=== PATIENT | male | born 1930 | race Caucasian/White ===

== ENCOUNTER 2017-01-05 20:20 | Observation (INO) | payer OTHER ==
[2017-01-05] MEDS ORDERED: NS 1,000 ML IV ONE (20:37)
[2017-01-05] MEDS ORDERED: HYDROmorphONE/DILAUDID 1 MG/ML SYR IVP ONE (20:37)
[2017-01-05] MEDS ORDERED: ONDANSETRON 4 MG/2 ML VIAL IVP ONE (20:37)
--- NOTE | 2017-01-05 20:37 | EDPHY ---
H & P Stated Complaint: ABD PAIN HX OF ILEUS, OFF AND ON FOR PAST FEW MONTHS HPI/ROS: HPI CHIEF COMPLAINT: Abdominal pain, abdominal distention HISTORY OF PRESENT ILLNESS: This patient very pleasant 86-year-old male significant past medical history for CABG, AICD left chest,, hypertension, hyperlipidemia, only takes aspirin daily, presents emergency room with abdominal pain abdominal suspension started around 130 afternoon. Patient tells me a normal lunch around 130 shortly after developed diffuse abdominal pain. Nausea. No vomiting. Took MiraLax. No bowel movement. Did have a bowel movement earlier in the day. No fever. The pain is located is lower abdomen. Of note he does have umbilical hernia that is hard non reducible. No vomiting. Past Medical History: hypertension, hyperlipidemia, coronary artery disease Past Surgical History: CABG, AICD Social History: Denies daily use of drugs alcohol tobacco products Family History: Noncontributory ROS REVIEW OF SYSTEMS: A comprehensive 10 point review of systems is otherwise negative aside from elements mentioned in the history of present illness. Exam Constitutional triage nursing summary reviewed, vital signs reviewed, awake/ alert. Eyes normal conjunctivae and sclera, EOMI, PERRLA. HENT normal inspection, atraumatic, moist mucus membranes, no epistaxis, neck supple/ no meningismus, no raccoon eyes. Respiratory clear to auscultation bilaterally, normal breath sounds, no respiratory distress, no wheezing. Cardiovascular rate normal, regular rhythm, no murmur, no edema, distal pulses normal. Gastrointestinal tender palpation lower abdomen, umbilical hernia present, tender, hard, not reducible , silent bowel sounds Genitourinary no CVA tenderness. Musculoskeletal no midline vertebral tenderness, full range of motion, no calf swelling, no tenderness of extremities, no meningismus, good pulses, neurovascularly intact. Skin pink, warm, & dry, no rash, skin atraumatic. Neurologic awake, alert and oriented x 3, AAOx3, moves all 4 extremities equally, motor intact, sensory intact, CN II-XII intact, normal cerebellar, normal vision, normal speech. Psychiatric normal mood/affect. Heme/Lymph/Immune no lymphadenopathy. Differential diagnosis includes but is not limited to and in no particular order : Incarcerated hernia, strangulated hernia, ileus, SBO, appendicitis, gallbladder disease, diverticulitis, colitis, enteritis, perforated viscus, gastritis, GERD, esophagitis, urinary tract infection, pyelonephritis, kidney stones Medical Decision Making: Plan for patient IV establishment, blood work, IV hydration, pain control with narcotics IV Dilaudid, IV Zofran for nausea, KUB x- ray. Re-evaluation: ED KUB x-ray: reviewed by myself. No free air. No air-fluid levels. Constipation present. Image interpreted myself. 2135: Patient be consult surgery as have concern of ache incarcerated hernia umbilical 2138: Spoke with Dr. Rain who will come and see and evaluate the patient at this time. 2201: Dr. Rain seen evaluated the patient plans to take the patient to the operating room to operate on his umbilical ventral hernia. Incarcerated hernia versus fat containing hernia. He awaits giving him pain it is not reducible his heart. No indication for CT at this time. Source: Patient - Personal History Current Tetanus/Diphtheria Vaccine: Yes Current Tetanus Diphtheria and Acellular Pertussis (TDAP): Yes - Medical/Surgical History Hx Asthma: No Hx Chronic Respiratory Disease: No Hx Diabetes: No Hx Cardiac Disease: Yes Hx Renal Disease: No Hx Cirrhosis: No Hx Alcoholism: No Hx HIV/AIDS: No Hx Splenectomy or Spleen Trauma: No Other PMH: ILEUS, DEFIBULATOR, 4 WAY BIPASS, KNEE REPLACEMENT, HTN, CARDIAC, HERNIA. - Social History Smoking Status: Former smoker Constitutional: Initial Vital Signs Temperature (C) 36.5 C 01/05/17 20:21 Heart Rate 86 01/05/17 20:21 Respiratory Rate 16 01/05/17 20:21 Blood Pressure 168/91 H 01/05/17 20:21 O2 Sat (%) 93 01/05/17 20:21 O2 Delivery Mode Room Air O2 (L/minute) 2 Allergies/Adverse Reactions: hyaluronic acid Allergy (Verified 01/05/17 21:46) Unknown Home Medications: Medication Instructions Recorded Allopurinol [Allopurinol 300 MG 300 mg PO DAILY 06/13/13 (RX)] Acetaminophen [Tylenol 325mg (*)] 325 mg PO Q6 PRN 01/05/17 Allopurinol [Allopurinol 300 MG 300 mg PO DAILY 01/05/17 (RX)] Amlodipine Besylate [Norvasc] 5 mg PO DAILY 01/05/17 Aspirin [Aspirin 81mg (*)] 81 mg PO DAILY 01/05/17 Atorvastatin Calcium [Lipitor 10 10 mg PO DAILY 01/05/17 mg (*)] Dutasteride [Avodart 0.5 MG (*)] 0.5 mg PO DAILY 01/05/17 Herbals/Supplements -Info Only 1 ea PO DAILY 01/05/17 LISINOPRIL/HYDROCHLOROTHIAZIDE 1 each PO DAILY 01/05/17 [PRINZIDE 20-25 MG TABLET] Metoprolol Succinate Xr [Toprol Xl 50 mg PO DAILY 01/05/17 50 mg (*)] Multivitamins [Multivitamin (*)] 1 each PO DAILY 01/05/17 Nortriptyline HCl [Pamelor 10 mg 10 mg PO HS 01/05/17 (*)] [place]-3 Ethyl Est-Lovaza [Lovaza 1 1 gm PO DAILY 01/05/17 gm (*)] Medical Decision Making - Diagnostics Imaging: Imaging Impressions Abdomen X-Ray 01/05/17 20:37 Impression: 1. Moderate stool in the colon. 2. Overall paucity of bowel gas in the small bowel. Specifics of small bowel, therefore, cannot be evaluated. There are no obvious concerning signs. - Data Points Laboratory Results: Laboratory Results 01/05/17 21:20 01/05/17 21:20 01/05/17 01/05/17 01/05/17 21:20 21:20 21:20 WBC 12.69 10^3/uL H 10^3/uL (3.80-9.50) RBC 5.39 10^6/uL 10^6/uL (4.40-6.38) Hgb 14.2 g/dL g/dL (13.7-17.5) Hct 44.5 % % (40.0-51.0) MCV 82.6 fL fL (81.5-99.8) MCH 26.3 pg L pg (27.9-34.1) MCHC 31.9 g/dL L g/dL (32.4-36.7) RDW 19.1 % H % (11.5-15.2) Plt Count 262 10^3/uL 10^3/uL (150-400) MPV 9.7 fL fL (8.7-11.7) Neut % (Auto) 83.8 % H % (39.3-74.2) Lymph % (Auto) 7.7 % L % (15.0-45.0) [place] % (Auto) 6.6 % % (4.5-13.0) Eos % (Auto) 0.6 % % (0.6-7.6) Baso % (Auto) 0.6 % % (0.3-1.7) Nucleat RBC Rel Count 0.0 % % (0.0-0.2) Absolute Neuts (auto) 10.63 10^3/uL H 10^3/uL (1.70-6.50) Absolute Lymphs (auto) 0.98 10^3/uL L 10^3/uL (1.00-3.00) Absolute Monos (auto) 0.84 10^3/uL H 10^3/uL (0.30-0.80) Absolute Eos (auto) 0.08 10^3/uL 10^3/uL (0.03-0.40) Absolute Basos (auto) 0.07 10^3/uL 10^3/uL (0.02-0.10) Absolute Nucleated RBC 0.00 10^3/uL 10^3/uL (0-0.01) Immature Gran % 0.7 % % (0.0-1.1) Immature Gran # 0.09 10^3/uL 10^3/uL (0.00-0.10) PT 12.4 SEC SEC (12.0-15.0) INR 0.93 (0.83-1.16) APTT 26.5 SEC SEC (23.0-38.0) VBG Lactic Acid Sodium 138 mEq/L mEq/L (134-144) Potassium 3.5 mEq/L mEq/L (3.5-5.2) Chloride 96 mEq/L L mEq/L (97-110) Carbon Dioxide 29 mEq/l mEq/l (22-31) Anion Gap 13 mEq/L mEq/L (8-16) BUN 23 mg/dL mg/dL (7-23) Creatinine 0.9 mg/dL mg/dL (0.7-1.3) Estimated GFR > 60 Glucose 137 mg/dL H mg/dL (70-100) Calcium 10.6 mg/dL H mg/dL (8.5-10.4) Total Bilirubin 0.9 mg/dL mg/dL (0.1-1.4) Conjugated Bilirubin 0.5 mg/dL mg/dL (0.0-0.5) Unconjugated Bilirubin 0.4 mg/dL mg/dL (0.0-1.1) AST 30 IU/L IU/L (17-59) ALT 36 IU/L IU/L (21-72) Alkaline Phosphatase 82 IU/L IU/L (38-126) Total Protein 7.2 g/dL g/dL (6.3-8.2) Albumin 4.5 g/dL g/dL (3.5-5.0) Lipase 104.0 IU/L IU/L (23-300) 01/05/17 21:20 WBC RBC Hgb Hct MCV MCH MCHC RDW Plt Count MPV Neut % (Auto) Lymph % (Auto) [place] % (Auto) Eos % (Auto) Baso % (Auto) Nucleat RBC Rel Count Absolute Neuts (auto) Absolute Lymphs (auto) Absolute Monos (auto) Absolute Eos (auto) Absolute Basos (auto) Absolute Nucleated RBC Immature Gran % Immature Gran # PT INR APTT VBG Lactic Acid 1.9 mmol/L mmol/L (0.7-2.1) Sodium Potassium Chloride Carbon Dioxide Anion Gap BUN Creatinine Estimated GFR Glucose Calcium Total Bilirubin Conjugated Bilirubin Unconjugated Bilirubin AST ALT Alkaline Phosphatase Total Protein Albumin Lipase Medications Given: Discontinued Medications Hydromorphone HCl (Dilaudid) 0.5 mg IVP EDNOW ONE Stop: 01/05/17 20:38 Last Admin: 01/05/17 21:40 Dose: 0.5 mg Sodium Chloride (Ns) 1,000 mls @ 0 mls/hr IV ONCE ONE PRN Reason: Wide Open Stop: 01/05/17 20:38 Last Admin: 01/05/17 21:40 Dose: 1,000 mls Ondansetron HCl (Zofran) 4 mg IVP EDNOW ONE Stop: 01/05/17 20:38 Last Admin: 01/05/17 21:40 Dose: 4 mg Departure - Departure Disposition: [facility] Inpatient Acute Clinical Impression: Incarcerated hernia Condition: Fair
[2017-01-05 21:37] LABS: % IMMATURE GRANULYOCYTES 0.7 % (0.0-1.1); ABSOLUTE IMMATURE GRANULOCYTES 0.09 10^3/uL (0.00-0.10); ADD DIFF? NO; ADD MORPH? NO; ADD SCAN? NO; ATYPICAL LYMPHOCYTE FLAG 10 (0-99); FRAGMENT RBC FLAG 0 (0-99); HEMATOCRIT 44.5 % (40.0-51.0); HEMOGLOBIN 14.2 g/dL (13.7-17.5); LEFT SHIFT FLG 0 (0-99); LIPEMIA HEMOLYSIS FLAG 80 (0-99); MEAN CELL HEMOGLOBIN 26.3 pg (27.9-34.1); MEAN CELL HEMOGLOBIN CONCENTR. 31.9 g/dL (32.4-36.7); MEAN CELL VOLUME 82.6 fL (81.5-99.8); MEAN PLATELET VOLUME 9.7 fL (8.7-11.7); PLATELET CLUMPS FLAG 0 (0-99); PLATELET COUNT 262 10^3/uL (150-400); RED BLOOD CELL COUNT 5.39 10^6/uL (4.40-6.38); RED CELL DISTRIBUTION WIDTH 19.1 % (11.5-15.2)
[2017-01-05 21:45] LABS: INR 0.93 (0.83-1.16); PROTIME(PATIENT) 12.4 SEC (12.0-15.0)
[2017-01-05 21:46] LABS: APTT 26.5 SEC (23.0-38.0)
[2017-01-05 21:51] LABS: ALANINE AMINOTRANSFERASE 36 IU/L (21-72); ALBUMIN 4.5 g/dL (3.5-5.0); ALKALINE PHOSPHATASE 82 IU/L (38-126); ANION GAP 13 mEq/L (8-16); ASPARTATE AMINOTRANSFERASE 30 IU/L (17-59); BILIRUBIN,TOTAL 0.9 mg/dL (0.1-1.4); BILIRUBIN-CONJUGATED 0.5 mg/dL (0.0-0.5); BILIRUBIN-UNCONJUGATED 0.4 mg/dL (0.0-1.1); CALCIUM 10.6 mg/dL (8.5-10.4); CARBON DIOXIDE 29 mEq/l (22-31); CHLORIDE 96 mEq/L (97-110); CREATININE 0.9 mg/dL (0.7-1.3); GLOMERULAR FILTRATION RATE > 60; GLUCOSE 137 mg/dL (70-100); POTASSIUM 3.5 mEq/L (3.5-5.2); SODIUM 138 mEq/L (134-144); TOTAL PROTEIN 7.2 g/dL (6.3-8.2)
[2017-01-05] MEDS ORDERED: BUPIVACAINE 0.5% 30 ML SDV ONE (22:15)
--- NOTE | 2017-01-05 22:26 | GHP ---
[f rep st] PREOP HISTORY AND PHYSICAL DATE OF ADMISSION: 01/05/2017 HISTORY OF PRESENT ILLNESS: An 86-year-old male, presents with 8-10 hours of abdominal pain. He saha s an incarcerated umbilical hernia. He says his hernia has been present for several years, but ion whaley goes in and out. He had a CT scan 2 months ago, which showed omentum in the hernia. Presently, it is somewhat tender. He has had vomiting and nausea and abdominal pain. He gets intermittent cr ampy abdominal pain similar to this at other times when his hernia is out. Admitted at this time fo r urgent repair of incarcerated umbilical hernia. Risks and options have been fully discussed and albino trejo wishes to proceed. In addition, he has gallstones, which will not be addressed at this time. His liver function tests are normal. PAST SURGICAL HISTORY: Includes total knee replacement, pacemaker, multiple coronary angioplasties, coronary bypass, and AICD placement. PAST MEDICAL HISTORY: Includes hypertension, hyperlipidemia, coronary artery disease. Denies any l fátima problems. He is an ex-smoker, but quit 40 years ago. FAMILY HISTORY: Noncontributory. REVIEW OF SYSTEMS: Reveals no other major medical problems other than those related to H and P abov e. PHYSICAL EXAMINATION: GENERAL: Reveals an alert, cooperative, 86-year-old male, in no acute distre ss. HEAD and NECK: No icterus. No adenopathy. No bruits. CHEST: Clear and symmetric. He has a pacemaker/AICD in the left upper chest. CARDIAC: Regular rhythm. ABDOMEN: Soft, slightly disten ded. Not tender except around his umbilicus, which is mildly erythematous and nonreducible and some what tender. There are no inguinal hernias. GENITALIA: Normal. EXTREMITIES: Benign. Full pulse s. IMPRESSION: Incarcerated umbilical hernia. This is probably the etiology of his abdominal pain. R isks and options have been fully discussed, including failure to relieve his pain, alternate diagnos es, possible need for bowel resection, and other problems, and he requests that we proceed. /[id number]/MODL
[2017-01-05] MEDS ORDERED: CEFAZOLIN 2 GM/DEXTROSE/100 ML BAG IV ONE (22:43)
[2017-01-05] MEDS ORDERED: ONDANSETRON 4 MG/2 ML VIAL ONE (22:51)
[2017-01-05] MEDS ORDERED: SUGAMMADEX SODIUM 200 MG/2 ML VIAL IVP ONE (22:51)
[2017-01-05] MEDS ORDERED: PROPOFOL 200 MG/20 ML VIAL ONE (22:51)
[2017-01-05] MEDS ORDERED: LIDOCAINE 2% 100 MG/5 ML SYR ONE (22:51)
[2017-01-05] MEDS ORDERED: DEXAMETHASONE 4 MG/ML VIAL ONE (22:51)
[2017-01-05] MEDS ORDERED: fentaNYL 250 MCG/5 ML INJ ONE (22:51)
[2017-01-05] MEDS ORDERED: ROCURONIUM 50 MG/5 ML VIAL ONE (22:51)
[2017-01-05] MEDS ORDERED: ceFAZolin 2 GM/DEXTROSE 100 ML IV ONE (23:00)
[2017-01-05] MEDS ORDERED: MIDAZOLAM 2 MG/2 ML VIAL ONE (23:07)
[2017-01-06] MEDS ORDERED: THROMBIN (BOVINE) 5,000 UNIT VIAL TP ONE (00:09)
--- NOTE | 2017-01-06 00:35 | SOAPPROG ---
SOAP Progress Note Assessment/Plan: Assessment: 86 MALE WITH INCARCERATED UMBILICAL HERNIA AND ABD PAIN WITH EMESIS ADMIT FOR SURGERY/ RISKS AND OPTIONS FULLY DISCUSSED Plan:REPAIR INCARCERATED UMBILICAL HERNIA 01/06/17 00:33 Objective: Vital Signs Temp Pulse Resp BP Pulse Ox 36.4 C 78 18 146/84 H 94 01/05/17 22:21 01/05/17 22:21 01/05/17 22:21 01/05/17 22:21 01/05/17 22:21 01/04/17 01/05/17 01/06/17 05:59 05:59 05:59 Intake Total 1000 Balance 1000 PT 12.4 SEC (12.0-15.0) 01/05/17 21:20 INR 0.93 (0.83-1.16) 01/05/17 21:20 ICD10 Worksheet Patient Problems: Problems Problem Status Onset Incarcerated hernia Acute
[2017-01-06] MEDS ORDERED: OXYCODONE/APAP 5/325 TAB PO PRN (00:37)
[2017-01-06] MEDS ORDERED: ONDANSETRON 4 MG/2 ML VIAL IVP PRN (00:37)
[2017-01-06] MEDS ORDERED: HYDROmorphONE/DILAUDID 1 MG/ML SYR IVP PRN (00:37)
--- NOTE | 2017-01-06 00:43 | POSTOPPROG ---
Post Op Note Date of Operation: 01/06/17 Surgeon: Prosper Rain Anesthesiologist: CHARLY Anesthesia: GET(General Endotracheal) Pre-op Diagnosis: INCARCERATED UMBILICAL HERNIA Post-op Diagnosis: SAME Indication: PAIN, OBSTRUCTION Procedure: OPEN REPAIR INCARCERATED UMBILICAL HERNIA Findings: ENTRAPPED SMALL BOWELL SEGMENT REMAINED VIABLE AFTER RELEASE Inf/Abcess present in the surg proc area at time of surgery?: Yes Depth: Organ Space EBL: Minimal Complications: 0
[2017-01-06] MEDS ORDERED: D5W 1/2 NS W/ 20 KCl/L 1,000 ML IV SCH (00:45)
--- NOTE | 2017-01-06 03:32 | GOP ---
[f rep st] OPERATIVE REPORT DATE OF OPERATION: 01/06/2017 SURGEON: Prosper Rain MD BUSINESS OBJECTS: There was no pastoral assistant. ANESTHESIOLOGIST: Dr. Grewal. PREOPERATIVE DIAGNOSIS: Incarcerated umbilical hernia. POSTOPERATIVE DIAGNOSIS: Incarcerated umbilical hernia. PROCEDURE PERFORMED: Open repair of incarcerated umbilical hernia. FINDINGS: Patient was found to have a loop of small bowel tightly incarcerated in his umbilical her kofi defect which was approximately 3 cm in size. The bowel had pinked up quite readily after being released. DESCRIPTION OF PROCEDURE: Patient was taken to the operating room where he received satisfactory ge neral endotracheal anesthesia by Dr. Grewal, placed in a supine position, prepped and draped in th e usual sterile fashion. An elliptical skin incision was made and dissection was carried down to th e hernia sac. The sac was dissected free from surrounding subcutaneous tissue. It was opened at th e fascial level and the sac was excised. This exposed a darkened piece of small bowel which was rel eased. The hernia opening was widened on either end for approximately 1 cm to allow release of the b owel. Normal small bowel was brought up into the wound and the entrapped bowel returned to a more n ormal pinkish color with peristalsis and positive pulsations in the mesentery. Hemostasis was assur ed. The small bowel was reduced. The hernia defect was exposed. Its edges were freshened up and i t was closed in a [id number] 2-layer closure with interrupted 0 Ethibond mattress sutures. The wound was infiltrated with 0.5% Marcaine. Topical thrombin was placed in the surgical cavity. Sub cu was closed with running 3-0 Vicryl suture, the skin with a 4-0 Monocryl subcuticular stitch. All layers were infiltrated with 0.5% Marcaine. Blood loss was negligible. No complications. Taken t o the recovery room in good condition. /[id number]/MODL
[2017-01-06] MEDS: METOCLOPRAMIDE 10 MG/2 ML VIAL IVP SCH ×4 (05:59→23:43)
[2017-01-06] MEDS ORDERED: amLODIPine BESYLATE 5 MG TAB PO SCH ×2 (09:00→21:00)
[2017-01-06] MEDS ORDERED: ASPIRIN 81 MG CHEWABLE TAB PO SCH ×2 (09:00→21:00)
[2017-01-06] MEDS ORDERED: MULTIVITAMINS 1 EACH TAB PO SCH ×2 (09:00→21:00)
[2017-01-06] MEDS ORDERED: METOPROLOL SUCCINATE XR 50 MG TAB PO SCH ×2 (09:00→21:00)
[2017-01-06] MEDS ORDERED: ALLOPURINOL 300 MG TAB PO SCH ×2 (09:00→21:00)
[2017-01-06] MEDS ORDERED: ATORVASTATIN CALCIUM 10 MG TAB PO SCH ×2 (09:00→21:00)
[2017-01-06] MEDS ORDERED: OMEGA-3 ETHYL EST-LOVAZA 1 GM CAP PO SCH ×2 (09:00→21:00)
[2017-01-06] MEDS ORDERED: LISINOPRIL/HCTZ 20/12.5MG 1 EA TAB PO SCH ×2 (09:00→21:00)
[2017-01-06] MEDS ORDERED: HYDROCHLOROTHIAZIDE 12.5 MG CAP PO SCH ×2 (09:00→21:00)
[2017-01-06] MEDS ORDERED: DUTASTERIDE 0.5 MG CAP PO SCH ×2 (09:00→21:00)
--- NOTE | 2017-01-06 09:55 | SOAPPROG ---
RENALD[facility] Progress Note Assessment/Plan: Assessment: 86 yo MALE WITH INCARCERATED UMBILICAL HERNIA AND ABD PAIN WITH EMESIS ADMIT FOR SURGERY/ RISKS AND OPTIONS FULLY DISCUSSED Plan:REPAIR INCARCERATED UMBILICAL HERNIA 01/06/17 00:33 01/06/17 09:55 Objective: Vital Signs Temp Pulse Resp BP Pulse Ox 36.8 C 80 17 106/62 93 01/06/17 07:31 01/06/17 07:31 01/06/17 07:31 01/06/17 07:31 01/06/17 07:31 01/05/17 01/06/17 01/07/17 05:59 05:59 05:59 Intake Total 2350 Output Total 420 225 Balance 1930 -225 PT 12.4 SEC (12.0-15.0) 01/05/17 21:20 INR 0.93 (0.83-1.16) 01/05/17 21:20 ICD10 Worksheet Patient Problems: Problems Problem Status Onset Incarcerated hernia Acute
--- NOTE | 2017-01-06 09:57 | SOAPPROG ---
SOAP Progress Note Assessment/Plan: Assessment: 86 yo male s/p open repair of incarcerated umbilical hernia POD #1 Pain well controlled. Tolerating clears. Gen: comfortable, afebrile Abd: incision cdi, soft Plan: Anticipate discharge today or tomorrow. 01/06/17 09:55 Objective: Vital Signs Temp Pulse Resp BP Pulse Ox 36.8 C 80 17 106/62 93 01/06/17 07:31 01/06/17 07:31 01/06/17 07:31 01/06/17 07:31 01/06/17 07:31 01/05/17 01/06/17 01/07/17 05:59 05:59 05:59 Intake Total 2350 Output Total 420 225 Balance 1930 -225 PT 12.4 SEC (12.0-15.0) 01/05/17 21:20 INR 0.93 (0.83-1.16) 01/05/17 21:20 ICD10 Worksheet Patient Problems: Problems Problem Status Onset Incarcerated hernia Acute
--- NOTE | 2017-01-06 10:12 | SOAPPROG ---
SOAP Progress Note Assessment/Plan: Assessment: doing great/ wound ok/ afebrile/ tolerating po/ home later or in am Plan:as above 01/06/17 10:11 Objective: Vital Signs Temp Pulse Resp BP Pulse Ox 36.8 C 80 17 106/62 93 01/06/17 07:31 01/06/17 07:31 01/06/17 07:31 01/06/17 07:31 01/06/17 07:31 01/05/17 01/06/17 01/07/17 05:59 05:59 05:59 Intake Total 2350 Output Total 420 225 Balance 1930 -225 PT 12.4 SEC (12.0-15.0) 01/05/17 21:20 INR 0.93 (0.83-1.16) 01/05/17 21:20 ICD10 Worksheet Patient Problems: Problems Problem Status Onset Incarcerated hernia Acute
[2017-01-06] MEDS: ERTAPENEM 1 GM in NS 100 ML IV SCH (10:31)
[2017-01-06 18:07] LABS: COLOR PALE YELLOW; LEUKOCYTE ESTERASE,URINE NEGATIVE (NEGATIVE); NITRITE,URINE NEGATIVE (NEGATIVE)
[2017-01-06] MEDS ORDERED: LISINOPRIL PO SCH (21:00)
[2017-01-06] MEDS ORDERED: HCTZ PO SCH (21:00)
[2017-01-06] MEDS ORDERED: ASPIRIN EC 81 MG TAB PO SCH (21:00)
[2017-01-06] MEDS ORDERED: [UNRECOGNIZED DRUG - REMARK] PO SCH (21:00)
[2017-01-06] MEDS ORDERED: NORTRIPTYLINE HCL 10 MG CAP PO SCH (21:00)
[2017-01-07] MEDS: METOCLOPRAMIDE 10 MG/2 ML VIAL IVP SCH (05:14)
--- NOTE | 2017-01-07 07:57 | SOAPPROG ---
SOAP Progress Note Assessment/Plan: Assessment: s/p open umbilical hernia repair for incarcerated umbilical hernia feels well dc home S: No flatus but feels great and if it is coming Sitting in chair CTAB RRR BS present S NT ND incision cdi Plan: 01/07/17 07:56 Objective: Vital Signs Temp Pulse Resp BP Pulse Ox 36.6 C 80 17 120/70 98 01/07/17 04:00 01/07/17 04:00 01/07/17 04:00 01/07/17 04:00 01/07/17 04:00 01/06/17 01/07/17 01/08/17 05:59 05:59 05:59 Intake Total 2350 250 Output Total 420 1725 350 Balance 1930 -1475 -350 PT 12.4 SEC (12.0-15.0) 01/05/17 21:20 INR 0.93 (0.83-1.16) 01/05/17 21:20 ICD10 Worksheet Patient Problems: Problems Problem Status Onset Incarcerated hernia Acute
[2017-01-07 08:12] VITALS: TEMP 98.6; O2SAT 90
[2017-01-07] MEDS: ERTAPENEM 1 GM in NS 100 ML IV SCH (08:36)
[2017-01-07 12:06] VITALS: BP 116/83; PULSE 79; RESP 20
== END 2017-01-07 14:24 | disposition home or self-care (01) ==
LOC: INTOOBSV 21:48 → F2W 01-06 01:07
PROVIDERS: ADMIT Surgery; ATTEND Surgery
PROC: 0WQF0ZZ Repair Abdominal Wall, Open Approach (ICD-10-PCS; principal; 2017-01-05 22:30)
DX: K42.0 Umbilical hernia with obstruction, without gangrene (principal); I10 Essential (primary) hypertension; E78.5 Hyperlipidemia, unspecified; Z95.1 Presence of aortocoronary bypass graft; Z95.810 Presence of automatic (implantable) cardiac defibrillator; Z79.82 Long term (current) use of aspirin
CPT/HCPCS: 49587; 74000; 88302; 96361; 96374; 96375; 99285; G0378; J0690; J1100; J1170; J1335; J2001; J2250; J2405; J2704; J2765; J3010

== ENCOUNTER → 2017-05-01 | Outpatient (CLI) | payer OTHER | LOC: CIMAGING 12:37 | PROVIDERS: ATTEND Physician Assistant Medical | DX: I25.10 Atherosclerotic heart disease of native coronary artery without angina pectoris (principal); E78.5 Hyperlipidemia, unspecified; Z95.1 Presence of aortocoronary bypass graft; Z72.0 Tobacco use | CPT/HCPCS: 93880-PO ==

== ENCOUNTER → 2018-07-16 | Outpatient (CLI) | payer OTHER | LOC: FIMAGING 08:49 | PROVIDERS: ATTEND Internal Medicine | DX: M81.0 Age-related osteoporosis without current pathological fracture (principal); E21.3 Hyperparathyroidism, unspecified; M48.062 Spinal stenosis, lumbar region with neurogenic claudication ==

== ENCOUNTER → 2018-07-17 | Outpatient (CLI) | payer OTHER ==
[~2018-07-17] MED LIST: IOPAMIDOL (ISOVUE 370) 100 ML BTL IV ONE; IOPAMIDOL (ISOVUE-300) 150 ML BTL ONE; IOPAMIDOL (ISOVUE-M 300) 15 ML VIAL ONE; LIDOCAINE 1% 300 MG/30 ML SDV ONE
[2018-07-17 09:00] LABS: INR 0.96 (0.83-1.16)
== END ==
LOC: FIMAGING 08:19
PROVIDERS: ATTEND Internal Medicine
PROC: B02BYZZ Computerized Tomography (CT Scan) of Spinal Cord using Other Contrast (ICD-10-PCS; principal; 2018-07-17)
DX: M48.061 Spinal stenosis, lumbar region without neurogenic claudication (principal); M43.16 Spondylolisthesis, lumbar region; M53.86 Other specified dorsopathies, lumbar region
CPT/HCPCS: 62304; 72132; 72265; Q9967

== ENCOUNTER 2018-09-07 10:43 | Emergency (ER) | payer OTHER ==
--- NOTE | 2018-09-07 11:04 | EDPHY ---
H & P Stated Complaint: cough congestion x ~ 2wks, SOB c exertion Time Seen by Provider: 09/07/18 11:03 HPI/ROS: 88 yo M presents c/o cough and congestion for 10 days, just isnt improving with over the counter medications, no chest pain. Some fever and chills. Review of systems As per HPI General positive fever positive chills no weakness HEENT no eye pain no eye discharge. No eye redness, no sore throat Respiratory positive URI symptoms positive cough, positive shortness of breath Cardiac no chest pain, no peripheral edema GI no abdominal pain, no diarrhea, no constipation, no nausea, no vomiting no flank pain, no hematuria, no dysuria Musculoskeletal no myalgias, no joint pain Heme no easy bruising, no easy bleeding Endo no polyuria, no polydipsia Skin no rashes, no pruritus Neuro no syncope, no dizziness, no headaches Psych is no suicidal ideation, no homicidal ideation Source: Patient, Family Exam Limitations: No limitations - Personal History Current Tetanus/Diphtheria Vaccine: No Current Tetanus Diphtheria and Acellular Pertussis (TDAP): No - Medical/Surgical History Hx Asthma: No Hx Chronic Respiratory Disease: No Hx Diabetes: No Hx Cardiac Disease: Yes Hx Renal Disease: No Hx Cirrhosis: No Hx Alcoholism: No Hx HIV/AIDS: No Hx Splenectomy or Spleen Trauma: No Other PMH: ILEUS, pacer/AICD, 4 WAY BYPASS, KNEE REPLACEMENT, HTN, CARDIAC, HERNIA. - Family History Significant Family History: No pertinent family hx - Social History Smoking Status: Former smoker Alcohol Use: None Drug Use: None - Physical Exam Exam: 88-year-old male alert and oriented no acute distress nontoxic appearance, temperature 37.6 Atraumatic normocephalic Extraocular muscles intact, anicteric Nares mild yellowish discharge Oropharynx mild erythema no tonsillar swelling no exudate no uvular deviation, tolerating own secretions Neck supple no lymphadenopathy Lungs coarse wheeze however symmetric air entry Heart regular rate and rhythm Abdomen normoactive bowel sounds soft nontender Extremities no cyanosis clubbing or edema, no calf tenderness Skin no rash Constitutional: Initial Vital Signs Temperature (C) 37.6 C 09/07/18 10:53 Heart Rate 94 09/07/18 10:53 Respiratory Rate 20 09/07/18 10:53 Blood Pressure 133/78 H 09/07/18 10:53 O2 Sat (%) 91 L 09/07/18 10:53 O2 Delivery Mode Room Air Allergies/Adverse Reactions: hyaluronic acid Allergy (Verified 01/05/17 21:46) Unknown Home Medications: Medication Instructions Recorded Allopurinol [Allopurinol 300 MG 300 mg PO DAILY 01/05/17 (RX)] Amlodipine Besylate [Norvasc] 5 mg PO DAILY 01/05/17 Atorvastatin Calcium [Lipitor 10 10 mg PO DAILY 01/05/17 mg (*)] LISINOPRIL/HYDROCHLOROTHIAZIDE 1 each PO DAILY 01/05/17 [PRINZIDE 20-25 MG TABLET] Metoprolol Succinate Xr [Toprol Xl 50 mg PO DAILY 01/05/17 50 mg (*)] Multivitamins [Multivitamin (*)] 1 each PO DAILY 01/05/17 Aspirin EC [Aspirin EC 81 mg (*)] 81 mg PO HS 01/06/17 Co Q-10 09/07/18 levOFLOXACIN [Levaquin] 500 mg PO DAILY #10 tablet 09/07/18 Medical Decision Making - Diagnostics Imaging Results: Imaging Impressions Chest X-Ray 09/07/18 11:09 Impression: Right upper lobe consolidation suggesting pneumonia. Radiographic followup is recommended to resolution. ED Course/Re-evaluation: Patient seen and evaluated for cough and congestion times 10 days Influenza swab negative Chest x-ray-small right upper lobe consolidation CBC White blood cell count 11 no bands Lactate 1.8 Patient given a DuoNeb with resolution of wheezing, Solu-Medrol 125 mg IV push Additionally he was given a 1st dose of IV antibiotics to cover community- acquired pneumonia He was given Levaquin 500 mg IV piggyback Was also given acetaminophen 650 mg for low-grade fever. Impression Community-acquired pneumonia Not requiring oxygen support Plan Discharge home Levaquin 500 mg daily times 10 days beginning tomorrow Symptomatic care Follow-up with primary care physician in 3-7 days Given education on reasons to return including difficulty breathing , high fever , chest pain or vomiting or generalized weakness. Differential Diagnosis: Differential diagnosis considered but not limited to: URI, bronchitis, sinusitis, pneumonia - Data Points Laboratory Results: Laboratory Results 09/07/18 12:00 09/07/18 09/07/18 09/07/18 12:21 12:21 12:00 WBC 11.62 10^3/uL H 10^3/uL (3.80-9.50) RBC 5.41 10^6/uL 10^6/uL (4.40-6.38) Hgb 13.9 g/dL g/dL (13.7-17.5) Hct 45.7 % % (40.0-51.0) MCV 84.5 fL fL (81.5-99.8) MCH 25.7 pg L pg (27.9-34.1) MCHC 30.4 g/dL L g/dL (32.4-36.7) RDW 19.6 % H % (11.5-15.2) Plt Count 244 10^3/uL 10^3/uL (150-400) MPV 10.0 fL fL (8.7-11.7) Neut % (Auto) 69.0 % % (39.3-74.2) Lymph % (Auto) 13.1 % L % (15.0-45.0) [place] % (Auto) 12.8 % % (4.5-13.0) Eos % (Auto) 3.7 % % (0.6-7.6) Baso % (Auto) 0.8 % % (0.3-1.7) Nucleat RBC Rel Count 0.0 % % (0.0-0.2) Absolute Neuts (auto) 8.02 10^3/uL H 10^3/uL (1.70-6.50) Absolute Lymphs (auto) 1.52 10^3/uL 10^3/uL (1.00-3.00) Absolute Monos (auto) 1.49 10^3/uL H 10^3/uL (0.30-0.80) Absolute Eos (auto) 0.43 10^3/uL H 10^3/uL (0.03-0.40) Absolute Basos (auto) 0.09 10^3/uL 10^3/uL (0.02-0.10) Absolute Nucleated RBC 0.00 10^3/uL 10^3/uL (0-0.01) Immature Gran % 0.6 % % (0.0-1.1) Immature Gran # 0.07 10^3/uL 10^3/uL (0.00-0.10) POC Sodium 141 mEq/L mEq/L (135-145) POC Potassium 3.4 mEq/L mEq/L (3.3-5.0) POC Chloride 106.0 mEq/L mEq/L (97-110) POC Total CO2 32 mEq/L H mEq/L (22-31) POC BUN 11 mg/dL mg/dL (7-23) POC Creatinine 0.9 mg/dL mg/dL (0.7-1.3) POC Glucose 126 mg/dL H mg/dL (70-100) POC Lactic Acid Marcio 1.8 mmol/L mmol/L (0.7-2.1) POC Calcium 10.5 mg/dL H mg/dL (8.5-10.4) Medications Given: Discontinued Medications Acetaminophen (Tylenol) 650 mg PO EDNOW ONE Stop: 09/07/18 11:56 Last Admin: 09/07/18 12:24 Dose: 650 mg Albuterol/Ipratropium (Duoneb) 3 ml IH EDNOW ONE Stop: 09/07/18 11:09 Last Admin: 09/07/18 11:31 Dose: 3 ml Levofloxacin/Dextrose (Levaquin 500 Mg (Premix)) 100 mls @ 100 mls/hr IV EDNOW ONE PRN Reason: Protocol Stop: 09/07/18 12:51 Last Admin: 09/07/18 12:17 Dose: 100 mls Methylprednisolone Sodium Succinate (Solu-Medrol) 125 mg IVP EDNOW ONE Stop: 09/07/18 12:05 Last Admin: 09/07/18 13:40 Dose: 125 mg Point of Care Test Results: Chemistry 09/07/18 12:21 POC Sodium 141 mEq/L mEq/L (135-145) POC Potassium 3.4 mEq/L mEq/L (3.3-5.0) POC Chloride 106.0 mEq/L mEq/L (97-110) POC Total CO2 32 mEq/L H mEq/L (22-31) POC BUN 11 mg/dL mg/dL (7-23) POC Creatinine 0.9 mg/dL mg/dL (0.7-1.3) POC Glucose 126 mg/dL H mg/dL (70-100) POC Calcium 10.5 mg/dL H mg/dL (8.5-10.4) Blood Gas/Lactic Acid-Venous 09/07/18 12:21 POC Lactic Acid Marcio 1.8 mmol/L mmol/L (0.7-2.1) Influenza PCR Flu Nasal Swab Collection Date 09/07/18 Flu Nasal Swab Collection Time 11:20 Influenza A Result Not Detected Influenza B Result Not Detected Departure - Departure Disposition: Home, Routine, Self-Care Clinical Impression: Pneumonia Condition: Good Instructions: Pneumonia (ED) Referrals: Aries Guevara MD [Primary Care Provider] - As per Instructions Prescriptions: levOFLOXACIN [Levaquin] 500 mg PO DAILY #10 tablet
[2018-09-07] MEDS ORDERED: IPRATROPIUM/ALBUTEROL 3 ML DEYVIAL IH ONE (11:08)
[2018-09-07] MEDS ORDERED: levOFLOXACIN 500 MG/DEXTROSE 100 ML IV ONE (11:52)
[2018-09-07] MEDS ORDERED: ACETAMINOPHEN 325 MG TAB PO ONE (11:55)
[2018-09-07] MEDS ORDERED: methylPREDNISolone SOD SUCC 125 MG/2 ML VIAL IVP ONE (12:04)
[2018-09-07 13:30] LABS: PLATELET COUNT 244 10^3/uL (150-400)
[2018-09-07 13:53] VITALS: BP 147/64
== END 2018-09-07 14:00 | disposition home or self-care (01) ==
LOC: CED 10:43
DX: J18.9 Pneumonia, unspecified organism (principal); Z87.891 Personal history of nicotine dependence
CPT/HCPCS: 71046; 96365; 96375; 99284; J1956; J2930; 80048-PO; 83605-PO

== ENCOUNTER → 2018-11-19 | Outpatient (CLI) | payer OTHER | LOC: BMCIMAGING 09:36 | PROVIDERS: ATTEND Internal Medicine | DX: J18.1 Lobar pneumonia, unspecified organism (principal) ==

== ENCOUNTER → 2019-01-22 | Outpatient (CLI) | payer OTHER | LOC: BMCIMAGING 11:23 | PROVIDERS: ATTEND Internal Medicine | DX: Z09 Encounter for follow-up examination after completed treatment for conditions other than malignant neoplasm (principal); Z87.01 Personal history of pneumonia (recurrent) ==

== ENCOUNTER → 2019-02-06 | Outpatient (CLI) | payer OTHER | LOC: BMCIMAGING 14:58 | PROVIDERS: ATTEND Internal Medicine | DX: R05 Cough (principal); K44.9 Diaphragmatic hernia without obstruction or gangrene; Z95.0 Presence of cardiac pacemaker ==

== ENCOUNTER 2019-02-12 05:48 | Observation (INO) | payer OTHER ==
[2019-02-12] MEDS ORDERED: ceFAZolin 2 GM/DEXTROSE 100 ML IV ONE (06:04)
[2019-02-12] MEDS ORDERED: ACETAMINOPHEN 500 MG TAB PO ONE (06:04)
[2019-02-12] MEDS ORDERED: LIDOCAINE 1% 2 ML INJ ID PRN (06:05)
[2019-02-12] MEDS ORDERED: LR 1,000 ML IV ONE (06:05)
--- NOTE | 2019-02-12 06:24 | PDHPUP ---
History & Physical Update H&P update statement: This history and physical update is based on an assessment of the patient which was completed after admission or registration (within 24 hours), but prior to the surgery/procedure. H&P update: H&P reviewed & patient examined, no change in patient's condition since H&P completed (Consents signed and site marked. All questions answered.)
[2019-02-12] MEDS ORDERED: THROMBIN (BOVINE) 20,000 UNIT VIAL TP ONE (06:54)
[2019-02-12] MEDS ORDERED: BACITRACIN 50,000 UNITS/10 ML SYR IRR ONE (06:54)
[2019-02-12] MEDS ORDERED: CHLORHEXIDINE GLUC HIBICLENS 118 ML BTL TP ONE (06:54)
[2019-02-12] MEDS ORDERED: BUPIVACAINE/EPI 0.25% 30 ML SDV ONE (06:54)
[2019-02-12] MEDS ORDERED: fentaNYL 100 MCG/2 ML INJ ONE (07:10)
--- NOTE | 2019-02-12 07:10 | PDANEPAE ---
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 Multiple angioplaties. Carotid disease. SSS s/p PPM/AICD. Pulmonary HTN. HLD - Pulmonary History Hx COPD: No Hx Asthma/Reactive Airway Disease: No Hx Recent Upper Respiratory Infection: Yes Hx Oxygen in Use at Home: No Hx Sleep Apnea: Yes Sleep Apnea Screening Result - Last Documented: Positive Pulmonary History Comment: Pulmonary HTN. PNA 10/2018 - Neurologic History Hx Cerebrovascular Accident: No Hx Seizures: No Hx Dementia: No - Endocrine History Hx Diabetes: No Hypothyroid: No Hyperthyroid: No Obesity: mild - Renal History Hx Renal Disorders: No - Liver History Hx Hepatic Disorders: No - Neurological & Psychiatric Hx Hx Neurological and Psychiatric Disorders: No - Cancer History Hx Cancer: No - Congenital Disorder History Hx Congenital Disorders: No - GI History GERD: no Hx Gastrointestinal Disorders: No - Other Health History Other Health History: R TKA. Spinal stenosis. Gout. MATILDE. BPH. Umbilical hernia s/p repair. Loose teeth; upper right side. Dental implants R upper and L upper. Ear itching, treated - Chronic Pain History Chronic Pain: No - Surgical History Prior Surgeries: Dental implants 11/2018. AICD 2017. Incarcerated umbilical hernia repair 01/05/17. CABG x4 1993. PPM ~2006. R TKA ~2004. Bilateral cartaract surgery. Multiple angioplasties prior to CABG ANE Review of Systems Review of systems is: negative Review of Systems: - Exercise capacity Exercise capacity: <4 METS METS (RN): 3 METS - Pacemaker Pacemaker Type: Permanent Pacer/Defib Pacemaker Instructional Technologist: [employer] Pacemaker Model: Itrevia Pacemaker Mode: DDD-CLS Date Pacemaker Last Checked: 10/16/2018 ANE Patient History - Allergies Allergies/Adverse Reactions: No Known Allergies Allergy (Verified 01/30/19 11:19) - Home Medications Home medications: home medication list seen and reviewed Home Medications: Allopurinol [Allopurinol 300 MG (RX)] 300 mg PO HS 01/30/19 [Last Taken Unknown] Aspirin [Aspirin 81mg (*)] 81 mg PO HS 01/30/19 [Last Taken Unknown] Atorvastatin Calcium [Lipitor 10 mg (*)] 10 mg PO HS 01/30/19 [Last Taken Unknown] Lisinopril/Hydrochlorothiazide [Zestoretic 20-25 mg Tablet] 1 each PO HS [Last Taken Unknown] Metoprolol Succinate Xr [Toprol Xl 50 mg (*)] 50 mg PO HS 01/30/19 [Last Taken Unknown] Multivitamins [Multivitamin (*)] 1 each PO HS 01/30/19 [Last Taken Unknown] Oxybutynin Chloride [Ditropan Xl] 10 mg PO HS 01/30/19 [Last Taken Unknown] RX: Herbals/Supplements -Info Only 1 ea PO DAILY 01/30/19 [Last Taken Unknown] amLODIPine BESYLATE [Norvasc 5 mg (*)] 5 mg PO HS 01/30/19 [Last Taken Unknown] - NPO status NPO Status: no food or drink >8 hours NPO Since - Liquids (Date): 02/11/19 NPO Since - Liquids (Time): 19:00 NPO Since - Solids (Date): 02/11/19 NPO Since - Solids (Time): 19:00 - Anes Hx Anes Hx: no prior problems - Smoking Hx Smoking Status: Former smoker - Family Anes Hx Family Hx Anesthesia Complications: Unknown. ANE Labs/Vital Signs - Vital Signs Vital Signs: reviewed preoperatively; see RN documention for details Blood Pressure: 132/78 Heart Rate: 67 Respiratory Rate: 16 O2 Sat (%): 90 Height: 175.26 cm Weight: 90.718 kg ANE Physical Exam - Airway Neck exam: FROM Mallampati Score: Class 2 Mouth exam: normal dental/mouth exam - Pulmonary Pulmonary: no respiratory distress, clear to auscultation - Cardiovascular Cardiovascular: regular rate and rhythym (paced) - ASA Status ASA Status: IV ANE Anesthesia Plan Anesthesia Plan: general endotracheal anesthesia Lines/Monitors: arterial line
[2019-02-12] MEDS ORDERED: PROPOFOL/EMULSION 500 MG/50 ML BOTTLE IV ONE ×2 (07:11→08:21)
[2019-02-12] MEDS ORDERED: PROPOFOL 200 MG/20 ML VIAL ONE (07:11)
[2019-02-12] MEDS ORDERED: LACTULOSE 20 GM/30 ML UDCUP PO PRN (08:48)
[2019-02-12] MEDS ORDERED: BISACODYL 10 MG SUPP PR PRN (08:48)
[2019-02-12] MEDS ORDERED: diphenhydrAMINE 25 MG CAP PO PRN (08:48)
[2019-02-12] MEDS ORDERED: MAGNESIUM HYDROXIDE 30 ML UDCUP PO PRN (08:48)
[2019-02-12] MEDS ORDERED: POLYETHYLENE GLYCOL 3350 17 GM PKT PO PRN (08:48)
[2019-02-12] MEDS ORDERED: ONDANSETRON 4 MG/2 ML VIAL IVP PRN ×2 (08:48→08:53)
[2019-02-12] MEDS ORDERED: ONDANSETRON DISINTEGRATING 4 MG TAB PO PRN (08:48)
[2019-02-12] MEDS ORDERED: METHOCARBAMOL 750 MG TAB PO PRN (08:48)
[2019-02-12] MEDS ORDERED: LR 500 ML IV PRN (08:53)
[2019-02-12] MEDS ORDERED: fentaNYL 100 MCG/2 ML INJ IVP PRN (08:53)
[2019-02-12] MEDS ORDERED: LABETALOL HCL 5 MG/ML 20 ML MDV IVP PRN (08:53)
[2019-02-12] MEDS ORDERED: ALBUTEROL 3 ML DEYVIAL IH PRN (08:53)
[2019-02-12] MEDS ORDERED: PROMETHAZINE HCL 25 MG/ML INJ IVP PRN (08:53)
[2019-02-12] MEDS ORDERED: MEPERIDINE 25 MG/0.5 ML AMP IVP PRN (08:53)
[2019-02-12] MEDS ORDERED: NALOXONE HCL 0.4 MG/ML INJ IVP PRN (08:53)
[2019-02-12] MEDS ORDERED: DEXAMETHASONE 4 MG/ML VIAL IVP PRN (08:53)
[2019-02-12] MEDS ORDERED: NS 1,000 ML IV SCH (09:00)
[2019-02-12] MEDS ORDERED: THROMBIN (BOVINE) 5,000 UNIT VIAL TP ONE (09:34)
[2019-02-12] MEDS ORDERED: ePHEDrine SULFATE 25 MG/5 ML SYR ONE ×2 (09:35)
[2019-02-12] MEDS ORDERED: LIDOCAINE 2% 5 ML SDV ONE (09:35)
[2019-02-12] MEDS ORDERED: ROCURONIUM 50 MG/5 ML VIAL ONE (09:35)
[2019-02-12] MEDS ORDERED: PHENYLEPHRINE HCL 100 MCG/ML SYR ONE ×2 (09:35→10:27)
[2019-02-12] MEDS ORDERED: ONDANSETRON 4 MG/2 ML VIAL ONE (09:36)
[2019-02-12] MEDS ORDERED: NEOSTIGMINE METHYLSULFATE 10 MG/10 ML MDV ONE (09:54)
[2019-02-12] MEDS ORDERED: GLYCOPYRROLATE 0.2 MG/1 ML VIAL ONE (09:54)
--- NOTE | 2019-02-12 10:19 | POSTOPPROG ---
Post Op Note Date of Operation: 02/12/19 Surgeon: Valdemar Hdez Television Repair Teacher: Stella Castellano NP Anesthesia: GET(General Endotracheal) Pre-op Diagnosis: Lumbar stenosis Post-op Diagnosis: Lumbar stenosis Procedure: L2-5 laminectomy Inf/Abcess present in the surg proc area at time of surgery?: No Depth: Deep Incisional (Fascial) EBL: 50-100 Total fluids administered: see anesthesia Complications: none Drains: Roger Narayanan Date of Surgery: 02/12/19 Post Op Day: 0 Assessment/Plan: Assessment: 88 yr old male s/p L2-5 laminectomy Plan: -Admit for obs -PT/OT -DEVYN to bulb suction -Pain management Call with questions/concerns Subjective: waking up in pacu Objective: waking up in pacu MAEx4 5/5 BLE Dressing CDI DEVYN patent Appropriate Neuro Check Frequency Ordered: Yes
[2019-02-12] MEDS: PHENYLEPHRINE HCL 100 MCG/ML SYR IVP PRN ×2 (10:29→10:32)
--- NOTE | 2019-02-12 11:42 | GOP ---
[f rep st] OPERATIVE REPORT DATE OF OPERATION: 02/12/2019 SURGEON: Valdemar Hdez MD MILITARY COOK: Stella Castellano NP. ANESTHESIA: General. PREOPERATIVE DIAGNOSIS: 1. L2 through L5 lumbar spondylosis with severe spinal stenosis. 2. Low back pain with lower extremity claudication and radiculopathy. 3. Treatment refractory to nonoperative intervention. POSTOPERATIVE DIAGNOSIS: 1. L2 through L5 lumbar spondylosis with severe spinal stenosis. 2. Low back pain with lower extremity claudication and radiculopathy. 3. Treatment refractory to nonoperative intervention. PROCEDURE PERFORMED: 1. Decompressive laminectomy L2-L3, L3-L4, and L4-L5 with medial facetectomies and lateral recess decompression. 2. Use of intraoperative fluoroscopy, less 1 hour physician time. 3. Use of neuromonitoring. 4. Use of the operating microscope. FINDINGS: per imaging SPECIMENS: None. ESTIMATED BLOOD LOSS: 100 mL. INDICATIONS: The patient is a very pleasant 88-year-old gentleman who presented to my office with lower extremity claudication and radiculopathy. He had evidence of spondylosis throughout with severe spinal stenosis L2-L3, L3-L4 , and L4-L5. After discussion of the risks, benefits, and treatment alternatives, and after failing nonoperative intervention, we decided to proceed forth with surgery as described above. DESCRIPTION OF PROCEDURE: Patient was brought to the operating theater and underwent general endotracheal anesthesia without complications. He had Venodynes, MITCHELL hose, and the appropriate lines placed by Anesthesia. He was flipped prone onto the Can frame and all bony prominences inspected and padded. The lower lumbar region was prepped and draped in usual sterile surgical fashion. A time-out was completed per protocol, and the patient received antibiotics within 1 hour of incision. Using lateral fluoroscopy and the spinal needle, we picked our entry point to the L2 through L5 levels. This was marked in the midline. Incision was infiltrated with Marcaine with epinephrine. The incision was taken down initially with the scalpel blade. Using monopolar, the incision was taken down to the midline through the lumbodorsal fascia and a subperiosteal dissection carried to the medial facet joints of L2-L3, L3-L4, and L4-L5. Deep retractors were placed to maintain our exposure and we confirmed our level using lateral fluoroscopy. Next, using a combination of bur tip on the drill bit, Kerrison punches, and Leksell rongeur, as well as microscopic magnification, we completed a decompressive laminectomy with bilateral medial facetectomies and lateral recess decompression L2-L3, L3-L4, and L4-L5. We completed this until we felt that everything was well decompressed on manual palpation with the ball-tipped probe. We obtained hemostasis with the bipolar. The wound was irrigated copiously with bacitracin irrigation. A drain was left in the subfascial space. We closed the wound in multiple layers using Vicryl sutures for the deep layers and Dermabond for the skin. The patient's wounds were dressed sterilely. He was then flipped supine onto the transport cart where he was awakened, extubated, and taken to the recovery room in stable condition. There were no complications and no noted changes on neuromonitoring throughout the procedure. COMPLICATIONS: None. /[id number]/MODL MTDD
[2019-02-12 11:53] LABS: PLATELET COUNT 185 10^3/uL (150-400)
--- NOTE | 2019-02-12 12:37 | POSTANESTH ---
Post Anesthetic Evaluation Cardiovascular Status: Tx Hyper/Hypo-tension (Pt hypotensive in PACU. Treated with intermittent doses of phenylephrine and ephedrine. Fluid bolus also given. Improvement noted.) Respiratory Status: Normal, Stable Level of Consciousness/Mental Status: Can Participate in Eval, Mildly Sleepy, Arousable Pain Control: Adequate, Prn Tx Ordered Nausea/Vomiting Control: Adequate, Prn Tx Ordered Complications Possibly Related to Anesthesia: Other, See Comments (Pt going to be sent to SDU or ICU, given advanced age, h/o heart problems, and ongoing hypotension in PACU which has been slow to resolve.)
[2019-02-12] MEDS ORDERED: PROTOCOL POTASSIUM 1 DOSE MISC PRN (13:32)
--- NOTE | 2019-02-12 13:42 | GCON ---
[f rep st] CONSULTATION COVERING MACHINE OPERATOR CONSULTATION. REQUESTING PHYSICIAN: Valdemar Hdez MD REASON FOR ADMISSION TO INTENSIVE CARE UNIT: Hypotensive postoperatively. The patient is an extremely pleasant 9y-year-old white male with a past medical history including hyp ertension, hyperlipidemia, coronary artery disease for which he underwent coronary bypass graft. He is examined postoperatively after receiving a decompressive laminectomy L2-L3, L3-L4, L4-5. In the r ecovery room, he was found to have continued hypotension, this is despite medications. He was subseq uently transferred to the intensive care unit. His blood pressure is somewhat better. In discussion with the patient, he states he is not currently having any pain. There is no dizziness. He denies any cough or production of sputum. He denies any breathlessness. There is no pleuritic-type chest p ain or angina equivalent. There is no fever or night sweats. Again, he currently feels somewhat bet ter. PAST MEDICAL HISTORY: Again, significant for hypertension, hyperlipidemia, coronary artery disease. PAST SURGICAL HISTORY: Total knee replacement, pacemaker placement, angioplasties, coronary bypass g raft and an AICD placement. FAMILY HISTORY: Noncontributory. SOCIAL HISTORY: Previous heavy smoker, none for over 30 years. He drinks 1 bottle of wine per night . He is , with children. He is currently retired. He has lived in [place] for many years, but is originally from [place]. PHYSICAL EXAM: VITAL SIGNS: Blood pressure is 119/46, pulse is 61, respirations 15, temperature 36. 1, oxygen saturation 93% on 3 L. GENERAL: He is a well-developed, elderly white male who is resting comfortably on supplemental oxygen. HEENT: Eyes: STEPHANIE, EOMI. Throat exam is deferred. NECK: Suppl e. No cervical adenopathy. HEART: Regular rate and rhythm with a 2/6 systolic murmur left sternal b order without radiation. LUNGS: Diminished breath sounds, but no wheeze. ABDOMEN: Soft, nontender . Bowel sounds are present in all 4 quadrants. EXTREMITIES: No clubbing, cyanosis, or edema. LABORATORIES: White count is 8.2, hemoglobin 14, hematocrit 47, platelet count is 185. Sodium 137, potassium 3.3, chloride 106, CO2 21, BUN 19, creatinine 1.1, glucose is 132. IMPRESSION: 1. Status post posterior laminectomy. 2. Hypotension, likely hypovolemic. 3. Hypokalemia. 4. History of hypertension. 5. History coronary artery disease. 6. Hyperlipidemia. 7. History of coronary bypass graft. 8. Pacemaker and AICD placement. RECOMMENDATIONS: 1. We will give aggressive IV hydration. 2. Close cardiovascular monitoring. 3. Watch for signs of alcohol withdrawal. 4. DVT and PE prophylaxis. 5. Stress ulcer prophylaxis. 6. Adequate pain control. /[id number]/MODL
[2019-02-12] MEDS: SENNOSIDES/DOCUSATE SODIUM TAB PO SCH ×2 (13:43→21:16)
[2019-02-12] MEDS: FAMOTIDINE 20 MG TAB PO SCH ×2 (13:43→21:16)
[2019-02-12] MEDS: ceFAZolin 2 GM/DEXTROSE 100 ML IV SCH ×2 (13:44→21:45)
[2019-02-12] MEDS: ACETAMINOPHEN 500 MG TAB PO SCH ×2 (14:09→21:16)
[2019-02-12] MEDS: POTASSIUM Cl (KCl) 100 ML IV SCH ×3 (14:12→15:51)
[2019-02-12] MEDS ORDERED: POTASSIUM CL 20 MEQ TAB PO ONE (15:00)
[2019-02-12] MEDS ORDERED: NS 500 ML IV ONE (19:00)
[2019-02-12] MEDS: ALLOPURINOL 300 MG TAB PO SCH (21:15)
[2019-02-12] MEDS: ATORVASTATIN CALCIUM 10 MG TAB PO SCH (21:16)
[2019-02-12] MEDS: OXYBUTYNIN 5 MG EXT REL TAB PO SCH (21:16)
[2019-02-12] MEDS: RED WINE 120 ML BOTTLE PO SCH (21:16)
[2019-02-12] MEDS: LISINOPRIL/HCTZ 10/12.5 MG 1 EA TAB PO SCH (21:17)
[2019-02-12] MEDS: amLODIPine BESYLATE 5 MG TAB PO SCH (21:17)
[2019-02-12] MEDS: METOPROLOL SUCCINATE XR 50 MG TAB PO SCH (21:42)
[2019-02-13 05:29] LABS: PLATELET COUNT 141 10^3/uL (150-400)
[2019-02-13] MEDS: ACETAMINOPHEN 500 MG TAB PO SCH ×3 (06:05→21:42)
--- NOTE | 2019-02-13 08:00 | SOAPPROG ---
SOAP Progress Note Assessment/Plan: Assessment: 88 yo male POD #1, s/p L2-5 laminectomy. Doing well this AM. Had episodes of hypotension overnight and was bolused 500ml Plan: Increase IV rate to 100ml/hr OK to transfer to floor Follow BP and PT/OT progress and if doing well may DC later today Pt seen by Dr. Hdez this AM. 02/13/19 07:56 02/13/19 07:59 Subjective: Out of bed in chair. Doing well, denies numbness or weakness. He has slight tingling in both feet. Objective: Vital Signs Temp Pulse Resp BP Pulse Ox 37.1 C 73 14 92/53 L 93 02/13/19 06:00 02/13/19 06:00 02/13/19 06:00 02/13/19 06:00 02/13/19 06:00 Laboratory Results 02/13/19 05:21 02/13/19 05:21 02/12/19 02/13/19 02/14/19 05:59 05:59 05:59 Intake Total 4100 Output Total 670 Balance 3430 Neuro: CELESTE, sens +LT DEVYN: 270 ml Dressing: Dry, clean ICD10 Worksheet Patient Problems: Problems Problem Status Onset Incarcerated hernia Acute
--- NOTE | 2019-02-13 09:00 | PDINTPN ---
Claim Approver Progress Note Assessment/Plan: Assessment/plan: * Chronic back pain * Status post L2-L3, L3-L4, L4-L5 decompressive laminectomy * Pain-reasonably well controlled. * Hypotension-improved with fluids. -continue IV fluids * History of hypertension * Status post pacemaker/AICD * PT/OT * Out of bed to chair * Disposition-transfer to medical surgical floor Subjective: Resting comfortably. Pain well controlled denies any breathlessness. Objective: Vital Signs Temp Pulse Resp BP Pulse Ox 37.1 C 73 14 92/53 L 93 02/13/19 06:00 02/13/19 06:00 02/13/19 06:00 02/13/19 06:00 02/13/19 06:00 Laboratory Results 02/13/19 05:21 02/13/19 05:21 02/12/19 02/13/19 02/14/19 05:59 05:59 05:59 Intake Total 4100 Output Total 670 Balance 3430 - Time Spent With Patient Time Spent With Patient: 35 min of time spent with patient, over 1/2 involved coordination of care or counseling. Case discussed with nursing Physical Exam - Physical Exam General Appearance: alert, no apparent distress EENT: PERRL/EOMI Neck: non-tender, supple Respiratory: chest non-tender, lungs clear, normal breath sounds Cardiac/Chest: normal peripheral pulses, regular rate, rhythm, systolic murmur Abdomen: normal bowel sounds, non-tender, soft Male Genitalia: deferred Rectal: deferred Skin: normal color, warm/dry Extremities: non-tender, normal inspection Neuro/Psych: no motor/sensory deficits, alert, normal mood/affect, oriented x 3 ICD10 Worksheet Patient Problems: Problems Problem Status Onset Incarcerated hernia Acute
[2019-02-13] MEDS: SENNOSIDES/DOCUSATE SODIUM TAB PO SCH ×2 (10:01→21:44)
[2019-02-13] MEDS: ENOXAPARIN 40 MG/0.4 ML SYR SC SCH (10:03)
[2019-02-13] MEDS: FAMOTIDINE 20 MG TAB PO SCH ×2 (10:03→21:44)
--- NOTE | 2019-02-13 15:18 | ASMTCASEMG ---
Living Arrangements What is your living Answers: With Spouse arrangement? Who do you live with? Type Of Residence What kind of residence do Answers: House you live in? Discharge Plan Comments Coordination Status Comments Notes: Patient is an 88yo male who comes to [facility] for lumbar spine issues and surgery. OT/PT have been ordered. Patient's PCP is Dr. Ismael Chris. Patient lives independently with his in [place], [place]. D/C plan TBD. CM will follow. Date Signed: 02/13/2019 03:17 PM Electronically Signed By:Cheri Granger LCSW
[2019-02-13] MEDS: RED WINE 120 ML BOTTLE PO SCH (19:00)
[2019-02-13] MEDS: ATORVASTATIN CALCIUM 10 MG TAB PO SCH (21:42)
[2019-02-13] MEDS: amLODIPine BESYLATE 5 MG TAB PO SCH (21:42)
[2019-02-13] MEDS: OXYBUTYNIN 5 MG EXT REL TAB PO SCH (21:43)
[2019-02-13] MEDS: LISINOPRIL/HCTZ 10/12.5 MG 1 EA TAB PO SCH (21:43)
[2019-02-13] MEDS: METOPROLOL SUCCINATE XR 50 MG TAB PO SCH (21:43)
[2019-02-13] MEDS: ALLOPURINOL 300 MG TAB PO SCH (21:44)
[2019-02-14] MEDS: ACETAMINOPHEN 500 MG TAB PO SCH ×3 (06:14→22:51)
[2019-02-14] MEDS: SENNOSIDES/DOCUSATE SODIUM TAB PO SCH ×2 (08:11→21:38)
[2019-02-14] MEDS: ENOXAPARIN 40 MG/0.4 ML SYR SC SCH (08:12)
[2019-02-14] MEDS: FAMOTIDINE 20 MG TAB PO SCH (08:12)
[2019-02-14] MEDS: oxyCODONE IR 5 MG TAB PO PRN (08:30)
[2019-02-14] MEDS ORDERED: PROTOCOL POTASSIUM 1 DOSE MISC PRN (08:53)
[2019-02-14] MEDS: POTASSIUM Cl (KCl) 100 ML IV SCH ×5 (09:52→21:37)
--- NOTE | 2019-02-14 14:17 | ASMTCMCOM ---
CM Note CM Note Notes: OT rec home/HHC, PT rec HHC and 24 hr supervision. Pt Pari will provide 24/hr supervision. Pt also has two sons local for support. PT and agree to HHC as safest d/c, choose [facility]. Jazmine alerted at [facility]. D/c plan of care: Home with [facility] PT/OT Date Signed: 02/14/2019 02:16 PM Electronically Signed By:MARIAELENA Cortez
[2019-02-14] MEDS: RED WINE 120 ML BOTTLE PO SCH (18:59)
--- NOTE | 2019-02-14 19:36 | NEUSURGPN ---
Date of Surgery: 02/12/19 Post Op Day: 2 Assessment/Plan: Late entry: I saw and examined the patient at 0815 today Assessment: 88 yr old male s/p L2-5 laminectomy POD#2 Plan: -Patient with improved pain post op, has not been ambulating much since surgery -PT/OT eval for dispo options -Remove DEVYN -Patient may need home oxygen, reports that he uses it at night at home Discussed patient with Dr Hdez Subjective: doing well, denies leg pain, expected incisional pain Objective: AxOx4 MAEx4 5/5 BLE Sensation intact to light touch BLE Incision/dressing CDI DEVYN patent Neuro Check Frequency: per routine Urinary Catheter in Place: No - Physician Discussed Patient with Dr.: Ketty Neurosurgery Physical Exam - Vitals, I&O, Labs I and O 02/13/19 02/14/19 02/15/19 05:59 05:59 05:59 Intake Total 4100 1400 200 Output Total 670 105 40 Balance 3430 1295 160 Weight 90.718 kg Intake: Oral (ml) 740 1400 200 IV Intake (ml) 1900 IV Infused (ml) 1460 Ns 1,000 ml @ 75 mls/hr 1360 IV CONT SUNDAR Rx#: [id number] ceFAZolin 2 GM/DEXTROSE 100 100 ml @ 200 mls/hr IV Q8HRS [facility] Rx#:[id number] Output: Urine (ml) 400 Urinal 400 DEVYN Drain Output (ml) 270 105 40 Posterior Back Roger 270 105 40 Narayanan Other: Intake Quantity Yes Sufficient Number of Voids Toilet 2 3 Bladder Scan Volume (ml) Urinal 340 Vital Signs Temp Pulse Resp BP Pulse Ox 36.6 C 73 17 125/68 H 91 L 02/14/19 15:26 02/14/19 15:26 02/14/19 15:26 02/14/19 15:26 02/14/19 15:26 Laboratory Results 02/13/19 05:21 02/14/19 18:25 ICD10 Worksheet Patient Problems: Problems Problem Status Onset Incarcerated hernia Acute
[2019-02-14] MEDS: amLODIPine BESYLATE 5 MG TAB PO SCH (21:37)
[2019-02-14] MEDS: METOPROLOL SUCCINATE XR 50 MG TAB PO SCH (21:37)
[2019-02-14] MEDS: LISINOPRIL/HCTZ 10/12.5 MG 1 EA TAB PO SCH (21:37)
[2019-02-14] MEDS: OXYBUTYNIN 5 MG EXT REL TAB PO SCH (21:37)
[2019-02-14] MEDS: ATORVASTATIN CALCIUM 10 MG TAB PO SCH (21:37)
[2019-02-14] MEDS: ALLOPURINOL 300 MG TAB PO SCH (21:38)
[2019-02-15] MEDS: ACETAMINOPHEN 500 MG TAB PO SCH ×2 (06:17→13:44)
[2019-02-15 07:22] VITALS: BP 124/70
--- NOTE | 2019-02-15 08:05 | NEUSURGPN ---
Date of Surgery: 02/12/19 Post Op Day: 3 Assessment/Plan: Assessment: 88 yr old male s/p L2-5 laminectomy POD#3 Plan: -Patient with expected incisional pain, has not been ambulating much since surgery -PT/OT eval for dispo options, patient is unsure he is safe to go home, eval for possible SNF -Patient may need home oxygen, reports that he uses it at night at home Discussed patient with Dr Hdez Subjective: sitting in chair, back pain Objective: AxOx4 MAEx4 5/5 BLE Sensation intact to light touch BLE Dressing/incision CDI Neuro Check Frequency: per routine Urinary Catheter in Place: No - Physician Discussed Patient with : Ketty Neurosurgery Physical Exam - Vitals, I&O, Labs I and O 02/14/19 02/15/19 02/16/19 05:59 05:59 05:59 Intake Total 1400 500 200 Output Total 105 40 30 Balance 1295 460 170 Intake: Oral (ml) 1400 500 IV Infused (ml) 200 POTASSIUM Cl (KCl) 100 ml 200 @ 50 mls/hr IV Q2H SUNDAR Rx#:[id number] Output: DEVYN Drain Output (ml) 105 40 30 Posterior Back Roger 105 40 30 Narayanan Other: Intake Quantity Yes Sufficient Number of Voids Incontinence 2 Toilet 2 5 Vital Signs Temp Pulse Resp BP Pulse Ox 36.6 C 66 16 124/70 H 94 02/15/19 07:20 02/15/19 07:20 02/15/19 07:20 02/15/19 07:20 02/15/19 07:20 Laboratory Results 02/13/19 05:21 02/15/19 05:06 ICD10 Worksheet Patient Problems: Problems Problem Status Onset Incarcerated hernia Acute
[2019-02-15] MEDS: oxyCODONE IR 5 MG TAB PO PRN (08:27)
[2019-02-15] MEDS: SENNOSIDES/DOCUSATE SODIUM TAB PO SCH (08:27)
[2019-02-15] MEDS: ENOXAPARIN 40 MG/0.4 ML SYR SC SCH (08:28)
[2019-02-15] MEDS ORDERED: FAMOTIDINE 20 MG TAB PO SCH (09:00)
--- NOTE | 2019-02-15 10:16 | PDIAF ---
- Diagnosis Diagnosis: S/P lumbar laminectomy for stenosis Code Status: Full Code - Medication Management Discharge Medications: electronically signed and located in the Home Medication List. - Orders Services needed: Home Care, Physical Therapy, Occupational Therapy Home Care Face to Face: I certify that this patient was under my care and that I had the required [id number] encounter meeting the encounter requirements on the discharge day. My findings support the fact that the patient is homebound as defined in Home Care Face to Face Continued: CMS Chapter 7 Medicare Benefits Manual 30.1.1 , The condition of the patient is such that there exists a normal inability to leave home and consequently, leaving home would require a considerable and taxing effort. Diet Recommendation: no restrictions on diet Sanchez: Not applicable Additional Instructions: No bending or twisting Do not lift greater than 10 pounds Ok to shower on Sunday February 17, 2019 Do not submerge incision for 2-3 weeks - Follow Up Care Current Providers and Referrals: Aries Guevara MD [Primary Care Provider] - Valdemar Hdez MD [Medical Doctor] - follow up as scheduled
--- NOTE | 2019-02-15 11:35 | PDHOMEO2F ---
Home Oxygen Face to Face Home Orders: I certify that a physician or a nurse practitioner or physician's assistant auditor has had a [id number] encounter with this patient on the date of this order due to the diagnosis listed, which relates to the primary reason the patient requires home oxygen. Alternative treatments have been tried, or considered, and deemed ineffective. It is anticipated that supplemental oxygen will result in improvement with treatment. Home oxygen qualifying diagnosis: Nocturnal hypoxia SpO2 on room air (%): 85% nocturnal Frequency of home oxygen needed: during sleep Home oxygen liters per minute: 2 Home oxygen delivery device: nasal cannula Concentrator: Yes E-tanks for mobility and back up: Yes If ordering portable O2, is the patient mobile in the home?: Yes I certify that, based on these findings, the home oxygen is medically necessary for this patient for the following length of time. Length of time home oxygen needed: 1 month Home Oxygen Comment: follow up with primary care for oxygen management
--- NOTE | 2019-02-15 14:03 | ASMTLACE ---
LACE Length of stay for Answers: 4-6 days current admission Acuity / Level of Answers: No Care: Did the patient have an inpatient admission? Comorbidities - select Answers: Coronary Artery Disease all that apply Previous myocardial infarction Other Notes: HTN; HLD # of Emergency department Answers: 1-2 visits in the last 6 months Score: 9 Date Signed: 02/15/2019 02:02 PM Electronically Signed By:MARIAELENA Cortez
--- NOTE | 2019-02-15 14:04 | ASMTCMCOM ---
CM Note CM Note Notes: Pt medically stable for d/c with [facility] PT/OT, orders to be obtained via [facility]. Pt to transport home. Date Signed: 02/15/2019 02:03 PM Electronically Signed By:MARIAELENA Cortez
== END 2019-02-15 16:11 | disposition home health service (06) ==
LOC: F3N 05:48 → F2N 12:12 → F3N 02-13 20:26
PROVIDERS: ADMIT Neurological Surgery; ATTEND Neurological Surgery
DX: M48.062 Spinal stenosis, lumbar region with neurogenic claudication (principal); M47.26 Other spondylosis with radiculopathy, lumbar region; I95.81 Postprocedural hypotension; I25.2 Old myocardial infarction; I77.9 Disorder of arteries and arterioles, unspecified; I27.20 Pulmonary hypertension, unspecified; E78.5 Hyperlipidemia, unspecified; Z95.810 Presence of automatic (implantable) cardiac defibrillator; Z96.651 Presence of right artificial knee joint; Z95.1 Presence of aortocoronary bypass graft
CPT/HCPCS: 63047; 63048; 76000; 97116; 97161; 97166; 97530; 97535; G0378; J0690; J1650; J2270; J2370; J2405; J2704; J3010; J3480